=== PATIENT | female | born 1985 | race African-American/Black ===

== ENCOUNTER 2019-03-10 19:17 | Observation (INO) | payer MEDICARE ==
[~2019-03-10] VITALS: Ht 147.3 cm; Wt 86.2 kg
[2019-03-10] MEDS ORDERED: PREN1TAB78 MT (19:58)
[2019-03-10] MEDS: DEXT 5%/LACTATED RINGERS 1,000 ML IV SCH ×2 (21:43→22:18)
[2019-03-10 21:52] LABS: BASOPHILS % 0.3 % (0.0-2.0); EOSINOPHILS % 0.4 % (0.0-5.0); HEMATOCRIT. 40.3 % (36.0-48.0); HEMOGLOBIN. 13.4 g/dL (12.0-16.0); LYMPHOCYTES % 7.6 % (20.0-50.0); MEAN CORPUSCULAR HEMOGLOBIN 29.6 pg (28.0-32.0); MEAN CORPUSCULAR VOLUME 89.1 fL (81.0-99.0); MEAN PLATELET VOLUME 10.8 fl (7.4-10.4); MONOCYTES % 3.5 % (2.0-8.0); NEUTROPHILS % 88.2 % (40.0-76.0); PLATELET 185 x1000/uL (130-400); RED BLOOD CELL COUNT 4.53 mill/uL (4.2-5.4)
[2019-03-10 21:55] LABS: CHLORIDE 105 mEq/L (98-107)
[2019-03-10] MEDS: AMPICILLIN 2,000 MG in SODIUM CHLORIDE 0.9% 100 ML IV SCH (22:36)
[2019-03-11] MEDS: AMPICILLIN 2,000 MG in SODIUM CHLORIDE 0.9% 100 ML IV SCH ×2 (04:53→10:31)
[2019-03-11] MEDS: DEXT 5%/LACTATED RINGERS 1,000 ML IV SCH (06:07)
[2019-03-11] MEDS ORDERED: ONDANSETRON HCL 4MG/2ML INJ IV NR (07:15)
== END 2019-03-11 18:15 | disposition home or self-care (01) ==
LOC: 8 EST LDRP 19:17
PROVIDERS: ADMIT Obstetrics & Gynecology Obstetrics; ATTEND Obstetrics & Gynecology Obstetrics
DX: O26.893 Other specified pregnancy related conditions, third trimester (principal); R19.7 Diarrhea, unspecified; O62.9 Abnormality of forces of labor, unspecified; Z3A.38 38 weeks gestation of pregnancy
CPT/HCPCS: 36415; 76805; 80053; 85025; 87015; 87045; 87086; 87427; 87449; 96365; 96366; 96375; 99281; A4215; G0378; J0290; J2405; J7050; 96360; J7121

== ENCOUNTER 2024-04-28 09:51 | Emergency (ER) | payer MEDICARE, MEDICAID ==
[~2024-04-28] VITALS: Ht 147.3 cm; Wt 77.0 kg
[2024-04-28 09:55] VITALS: BP 123/77; PULSE 90; RESP 16; TEMP 37; O2SAT 98
== END 2024-04-28 10:50 | disposition left against medical advice (07) ==
LOC: ER 10:03
DX: M79.605 Pain in left leg (principal); Z53.21 Procedure and treatment not carried out due to patient leaving prior to being seen by health care provider